=== PATIENT | female | born 1955 | race Two or more races ===

== ENCOUNTER 2017-10-21 07:20 | Outpatient (CLI) | payer OTHER | END 2017-10-21 07:33 | disposition home or self-care (01) | LOC: MAMO-SONO 07:20 | DX: Z12.31 Encounter for screening mammogram for malignant neoplasm of breast (principal) ==

== ENCOUNTER 2017-10-21 08:32 | Outpatient (CLI) | payer OTHER | END 2017-10-21 09:11 | disposition home or self-care (01) | LOC: RAD 08:32 | DX: I10 Essential (primary) hypertension (principal) ==